=== PATIENT | male | born 1995 | race Two or more races ===

== ENCOUNTER 2021-02-11 08:30 | Outpatient (CLI) | payer OTHER, SELFPAY ==
--- NOTE | ~2021-02-11 | MR_ITS ---
EXAMINATION: MR knee LT wo con DATE: 02/11/2021 10:01 INDICATION: Left knee posttraumatic osteoarthritis. TECHNIQUE: Magnetic resonance imaging (MRI) of the left knee was performed without intravenous contra st. Sequences included axial PD-weighted FS FSE, coronal PD-weighted FSE and PD-weighted FS FSE, sagi ttal PD-weighted FSE, and sagittal T2-weighted FS FSE. COMPARISON: None. FINDINGS: Medial compartment: There is an undersurface horizontal tear of posterior horn of medial meniscus. There is an ununited f racture of posterior tibial plateau involving 10-15% of the articular surface with 4 mm step-off at t he articular surface. There is shallow partial-thickness cartilage loss of tibial condyle and femoral condyle. Lateral compartment: There is a complex tear of lateral meniscus with absence of the posterior meniscus. There is full-thi ckness cartilage loss of femoral condyle involving the lateral articular surface with intra-articular osteophyte. There is deep partial thickness cartilage loss of femoral condyle involving the posterio r articular surface with mild subchondral edema-like marrow signal intensity. There is shallow partia l-thickness cartilage loss of tibial condyle. Patellofemoral compartment: The patellar cartilage is normal, but motion artifact decreases sensitivity. The trochlear cartilage is normal. Osteophytes are noted. Ligaments and tendons: There is a complete tear of anterior cruciate ligament. Posterior cruciate ligament is normal. Medial collateral ligament and lateral collateral ligament complex are normal. The patellar tendon is charity l. Fluid: There is a small knee joint effusion. IMPRESSION: 1. Ununited fracture of posterior aspect of medial tibial plateau. 2. Mild chondrosis of medial compartment and severe chondrosis of lateral compartment. 3. Tears of medial and lateral menisci. 4. Complete tear of anterior cruciate ligament. 5. Small knee joint effusion. Reviewed, dictated and finalized at location A. T RECORDER IMPRESSION: 1. Ununited fracture of posterior aspect of medial tibial plateau. 2. Mild chondrosis of medial compartment and severe chondrosis of lateral dede rtment. 3. Tears of medial and lateral menisci. 4. Complete tear of anterior cruciate ligament. 5. Small knee joint effusion.
--- NOTE | ~2021-02-11 | MR_ITS ---
EXAMINATION: MR knee RT wo con DATE: 02/11/2021 10:01 INDICATION: Rupture of anterior cruciate ligament of right knee. Right knee pain. TECHNIQUE: Magnetic resonance imaging (MRI) of the right knee was performed without intravenous contr ast. Sequences included axial PD-weighted FS FSE, coronal PD-weighted FSE and PD-weighted FS FSE, sag ittal PD-weighted FSE, and sagittal T2-weighted FS FSE. COMPARISON: None. FINDINGS: Medial compartment: There is a bucket-handle tear of medial meniscus displaced into the intercondylar notch. There is car tilage surface irregularity of tibial condyle and femoral condyle. Osteophytes are noted. Lateral compartment: There is blunting of posterior horn of lateral meniscus, consistent with a radial tear. There is shal low partial-thickness cartilage loss of tibial condyle posteriorly with mild subchondral edema-like m arrow signal intensity. There is shallow partial-thickness cartilage loss of femoral condyle, worst a t the central and posterior articular surface. Osteophytes are noted. Patellofemoral compartment: Tibial cartilage is normal, but motion artifact decreases sensitivity. Trochlear cartilage is normal. Osteophytes are noted. Ligaments and tendons: There is a complete tear of anterior cruciate ligament. Posterior communicating ligament is normal. T here are changes of prior sprains of medial collateral ligament and fibular collateral ligament kevin cterized by thickening and increased signal intensity. There is mild patellar tendinopathy. Fluid: There is a small knee joint effusion. IMPRESSION: 1. Mild tricompartmental chondrosis. 2. Displaced bucket-handle tear of medial meniscus. 3. Radial tear of posterior horn of lateral meniscus. 4. Small knee joint effusion. Reviewed, dictated and finalized at location A. [employer]
== END 2021-02-11 08:31 | disposition home or self-care (01) ==
PROVIDERS: Visit Provider Physician Assistant
DX: S83.511A Sprain of anterior cruciate ligament of right knee, initial encounter (principal); M17.32 Unilateral post-traumatic osteoarthritis, left knee; S83.211A Bucket-handle tear of medial meniscus, current injury, right knee, initial encounter; S83.281A Other tear of lateral meniscus, current injury, right knee, initial encounter; M25.462 Effusion, left knee; M25.461 Effusion, right knee; S83.282A Other tear of lateral meniscus, current injury, left knee, initial encounter; S83.242A Other tear of medial meniscus, current injury, left knee, initial encounter
CPT/HCPCS: 73721